=== PATIENT | male | born 1995 | race Caucasian/White ===

== ENCOUNTER 2018-07-13 12:19 | Emergency (ER) | payer MEDICAID, OTHER ==
[~2018-07-13] VITALS: Ht 177.8 cm; Wt 66.0 kg
[2018-07-13 16:16] VITALS: BP 130/88
== END 2018-07-13 16:26 | disposition home or self-care (01) ==
LOC: ER 12:19
DX: H61.22 Impacted cerumen, left ear (principal); R03.0 Elevated blood-pressure reading, without diagnosis of hypertension
CPT/HCPCS: 99284

== ENCOUNTER 2021-11-20 12:54 | Emergency (ER) | payer MEDICAID ==
[~2021-11-20] VITALS: Ht 177.8 cm; Wt 70.0 kg
[2021-11-20 13:01] VITALS: BP 136/86
[2021-11-20 14:25] LABS: CLARITY URINE CLEAR (CLEAR); COLOR URINE YELLOW (YELLOW); KETONES URINE NEGATIVE (NEGATIVE); LEUKOCYTE ESTERASE URINE NEGATIVE (NEGATIVE); NITRITE URINE NEGATIVE (NEGATIVE); OCCULT BLOOD URINE NEGATIVE (NEGATIVE); PH URINE 6.5 (4.5-8.0); PROTEIN URINE NEGATIVE (NEGATIVE); SPECIFIC GRAVITY URINE 1.018 (1.005-1.030); UROBILINOGEN URINE 0.2 E.U./dL (0.2-1.0)
== END 2021-11-20 15:07 | disposition home or self-care (01) ==
LOC: ER 12:54
DX: R10.2 Pelvic and perineal pain (principal)
CPT/HCPCS: 81003; 99283

== ENCOUNTER 2021-12-27 12:35 | Emergency (ER) | payer MEDICAID ==
[~2021-12-27] VITALS: Ht 177.8 cm; Wt 65.0 kg
[2021-12-27] MEDS ORDERED: IBUPROFEN 600MG TABLET PO ONE (13:00)
[2021-12-27 13:11] LABS: CLARITY URINE CLEAR (CLEAR); COLOR URINE YELLOW (YELLOW); KETONES URINE NEGATIVE (NEGATIVE); LEUKOCYTE ESTERASE URINE NEGATIVE (NEGATIVE); NITRITE URINE NEGATIVE (NEGATIVE); OCCULT BLOOD URINE NEGATIVE (NEGATIVE); PROTEIN URINE NEGATIVE (NEGATIVE); SPECIFIC GRAVITY URINE 1.018 (1.005-1.030)
[2021-12-27] MEDS ORDERED: IBUP-2029 MT (15:08)
[2021-12-27 15:24] VITALS: BP 104/59
== END 2021-12-27 15:26 | disposition home or self-care (01) ==
LOC: ER 13:05
DX: K40.90 Unilateral inguinal hernia, without obstruction or gangrene, not specified as recurrent (principal)
CPT/HCPCS: 76857; 76870; 81003; 93976; 99284

== ENCOUNTER 2022-09-03 19:30 | Emergency (ER) | payer MEDICAID ==
[~2022-09-03] VITALS: Ht 177.8 cm; Wt 66.0 kg
[~2022-09-03 19:30] MED LIST: IBUP-2029 MT
[2022-09-03 19:51] VITALS: BP 121/81
[2022-09-04] MEDS ORDERED: CIPR500T5 MT (00:41)
[2022-09-04] MEDS ORDERED: IBUP-2029 MT (00:41)
[2022-09-04] MEDS ORDERED: AZIT500T8 MT (00:41)
== END 2022-09-04 00:51 | disposition home or self-care (01) ==
LOC: ER 19:30
DX: J18.9 Pneumonia, unspecified organism (principal)
CPT/HCPCS: 71045; 99283

== ENCOUNTER 2023-11-26 15:14 | Emergency (ER) | payer MEDICAID ==
[~2023-11-26] VITALS: Ht 172.7 cm; Wt 69.0 kg
[~2023-11-26 15:14] MED LIST changes: +AZIT500T8 MT; +CIPR500T5 MT
[2023-11-26 15:18] VITALS: BP 135/85; PULSE 77; RESP 18; O2SAT 99
[2023-11-26] MEDS ORDERED: MECL-217 MT (18:52)
== END 2023-11-26 19:11 | disposition home or self-care (01) ==
LOC: ER 15:14
DX: H81.12 Benign paroxysmal vertigo, left ear (principal)
CPT/HCPCS: 99281